=== PATIENT | female | born 1950 | race Caucasian/White ===

== ENCOUNTER 2019-01-19 08:43 | Emergency (ER) | payer MEDICARE ==
[~2019-01-19] VITALS: Ht 167.6 cm; Wt 77.0 kg
[2019-01-19 10:18] VITALS: BP 120/60
== END 2019-01-19 10:27 | disposition home or self-care (01) ==
LOC: ED 09:15
DX: R42 Dizziness and giddiness (principal)
CPT/HCPCS: 93005; 99283